=== PATIENT | male | born 1970 | race Caucasian/White ===

== ENCOUNTER 2017-01-07 15:16 | Inpatient (IN) | payer OTHER ==
[~2017-01-07] VITALS: Ht 180.3 cm; Wt 103.3 kg
[2017-01-07] MEDS ORDERED: ASPIRIN 325 MG TABLET PO ONE (15:21)
[2017-01-07] MEDS ORDERED: SODIUM CHLORIDE 0.9% 1,000 ML IV SCH ×2 (15:21→18:30)
[2017-01-07] MEDS ORDERED: ATOR20TA9 PO (15:26)
[2017-01-07] MEDS ORDERED: VERAPAMIL 2.5 MG/ML, 2ML ONE (15:50)
[2017-01-07] MEDS ORDERED: NITROGLYCERIN 5 MG/ML, 10ML ONE (15:50)
[2017-01-07] MEDS ORDERED: FENTANYL PF 100 MCG/2ML ONE (15:50)
[2017-01-07] MEDS ORDERED: MIDAZOLAM 1 MG/ML, 5ML ONE (15:50)
[2017-01-07] MEDS ORDERED: BIVALIRUDIN 250 MG ONE ×2 (15:51→16:57)
[2017-01-07] MEDS ORDERED: TICAGRELOR 90 MG TABLET ONE (15:51)
[2017-01-07] MEDS ORDERED: HEPARIN 1,000 UNITS/ML, 10ML ONE (15:51)
[2017-01-07] MEDS ORDERED: LIDOCAINE 2%, 20ML ONE (15:51)
[2017-01-07 15:59] LABS: DIFF TOTAL CELLS COUNTED 100 CELL DIFF
[2017-01-07 16:00] LABS: ANISOCYTOSIS 1+; VERIFY COUNTS? YES
[2017-01-07] MEDS ORDERED: HEPARIN 5,000 UNITS/ML, 1ML IV PRN (16:00)
[2017-01-07] MEDS ORDERED: HEPARIN 25,000 UNITS/500ML PMX 500 ML IV PRN (16:00)
[2017-01-07] MEDS ORDERED: HEPARIN 5,000 UNITS/ML, 1ML IV ONE (16:00)
[2017-01-07 18:21] VITALS: BP 119/79
[2017-01-07 19:10] LABS: IS PT STATUS REG ER OR PRE ER? NO
[2017-01-07] MEDS ORDERED: ZOLPIDEM 5MG TABLET PO PRN (19:30)
[2017-01-07] MEDS ORDERED: BISACODYL 5 MG EC TABLET PO PRN (19:30)
[2017-01-07] MEDS ORDERED: BISACODYL 10 MG SUPP PR PRN (19:30)
[2017-01-07] MEDS ORDERED: ACETAMINOPHEN 325 MG TABLET PO PRN (19:30)
[2017-01-07] MEDS ORDERED: ONDANSETRON 2MG/ML, 2ML IV PRN (19:30)
[2017-01-07] MEDS: ATORVASTATIN 20 MG TABLET PO SCH (21:20)
[2017-01-07 21:27] VITALS: BP 119/79
[2017-01-08 01:07] LABS: IS PT STATUS REG ER OR PRE ER? NO
[2017-01-08 04:00] VITALS: BP 96/63
[2017-01-08 04:42] LABS: BLOOD UREA NITROGEN 11 mg/dL (7-18)
[2017-01-08] MEDS: CARVEDILOL 3.125 MG TABLET PO SCH ×2 (06:00→18:25)
[2017-01-08] MEDS: ASPIRIN 81 MG TABLET EC PO SCH (06:20)
[2017-01-08 08:00] VITALS: BP 123/79
[2017-01-08] MEDS: TICAGRELOR 90 MG TABLET PO SCH ×2 (08:09→20:20)
[2017-01-08] MEDS ORDERED: ENOXAPARIN 40 MG/0.4 ML SQ SCH ×2 (09:00→18:30)
[2017-01-08] MEDS ORDERED: ONDANSETRON 2MG/ML, 2ML IV PRN (14:30)
[2017-01-08] MEDS ORDERED: BISACODYL 5 MG EC TABLET PO PRN (14:30)
[2017-01-08] MEDS ORDERED: BISACODYL 10 MG SUPP PR PRN (14:30)
[2017-01-08 14:43] VITALS: BP 127/65
[2017-01-08 16:32] VITALS: BP 113/77
[2017-01-08 18:17] VITALS: BP 122/74
[2017-01-08 20:00] VITALS: BP 101/66
[2017-01-08] MEDS: ATORVASTATIN 20 MG TABLET PO SCH (20:21)
[2017-01-09 02:00] VITALS: BP 100/62
[2017-01-09 05:50] LABS: BLOOD UREA NITROGEN 12 mg/dL (7-18)
[2017-01-09 05:58] LABS: IS PT STATUS REG ER OR PRE ER? NO
[2017-01-09 06:23] VITALS: BP 117/79
[2017-01-09] MEDS: CARVEDILOL 3.125 MG TABLET PO SCH (06:25)
[2017-01-09] MEDS: ASPIRIN 81 MG TABLET EC PO SCH (06:25)
[2017-01-09 07:48] VITALS: BP 98/63
[2017-01-09] MEDS: TICAGRELOR 90 MG TABLET PO SCH (07:48)
[2017-01-09] MEDS ORDERED: CARV3.1212 PO (08:40)
[2017-01-09] MEDS ORDERED: ASPI-621 PO (08:40)
[2017-01-09] MEDS ORDERED: TICA90TA PO (08:41)
[2017-01-09] MEDS ORDERED: NITR0.4T8 SL (08:42)
[2017-01-09] MEDS ORDERED: ENOXAPARIN 40 MG/0.4 ML SQ SCH (09:00)
== END 2017-01-09 09:52 | disposition home or self-care (01) | DRG 247 ==
LOC: ED 15:21 → EDIP 15:58 → CCU 17:59 → 5SO 01-08 16:17
PROVIDERS: ADMIT Internal Medicine Interventional Cardiology; ATTEND Internal Medicine Interventional Cardiology
PROC: 02703DZ Dilation of Coronary Artery, One Artery with Intraluminal Device, Percutaneous Approach (ICD-10-PCS; principal; 2017-01-07)
PROC: 0271346 Dilation of Coronary Artery, Two Arteries, Bifurcation, with Drug-eluting Intraluminal Device, Percutaneous Approach (ICD-10-PCS; 2017-01-07)
PROC: 4A023N7 Measurement of Cardiac Sampling and Pressure, Left Heart, Percutaneous Approach (ICD-10-PCS; 2017-01-07)
PROC: B2111ZZ Fluoroscopy of Multiple Coronary Arteries using Low Osmolar Contrast (ICD-10-PCS; 2017-01-07)
PROC: 02C03ZZ Extirpation of Matter from Coronary Artery, One Artery, Percutaneous Approach (ICD-10-PCS; 2017-01-07)
DX: I21.4 Non-ST elevation (NSTEMI) myocardial infarction (principal); I10 Essential (primary) hypertension; E78.5 Hyperlipidemia, unspecified; E78.00 Pure hypercholesterolemia, unspecified; F17.220 Nicotine dependence, chewing tobacco, uncomplicated; I25.10 Atherosclerotic heart disease of native coronary artery without angina pectoris
CPT/HCPCS: 36415; 71010; 80047; 80048; 80061; 82040; 84484; 85014; 85018; 85025; 85610; 85730; 87081; 92928; 93005; 93306; 93458; 99156; 99157; 99285; C1760; C1876; C1894; C9600; J0583; J1644; J1650; J2250; J3010; J3490; C1725; C1757; C1769; C1874; C1887; J7030; Q9967